=== PATIENT | male | born 1995 | race Caucasian/White ===

== ENCOUNTER 2016-12-23 15:40 | Emergency (ER) | payer OTHER ==
[2016-12-23 17:02] VITALS: BP 130/65
--- NOTE | 2016-12-23 18:08 | UC ---
Skin Complaint HPI - HPI Summary HPI Summary: skin rash that started in armpit and has progressed on arms and legs, over the past few months - History of Current Complaint Chief Complaint: UCRash Time Seen by Provider: 12/23/16 17:51 Stated Complaint: RASH Hx Obtained From: Patient Onset/Duration: Sudden Onset, Lasting Weeks Skin Exposure Onset/Duration: Weeks Ago Timing: Constant Onset Severity: Mild Current Severity: Mild Pain Scale Used: 0-10 Numeric Character: Pruritus, Redness, Raised Aggravating: Humidity Alleviating: Nothing Associated Signs & Symptoms: Positive: Negative - Allergy/Home Medications Allergies/Adverse Reactions: Allergies Allergy/AdvReac Type Severity Reaction Status Date / Time No Known Allergies Allergy Verified 12/23/16 17:02 Home Medications: Home Medications Cholecalciferol [Vitamin D] 1,000 unit PO 12/23/16 [History] Review of Systems Constitutional: Negative Skin: Rash Eyes: Negative ENT: Negative Respiratory: Negative Cardiovascular: Negative Gastrointestinal: Negative Genitourinary: Negative Motor: Negative Neurovascular: Negative Musculoskeletal: Negative Neurological: Negative Psychological: Negative All Other Systems Reviewed And Are Negative: Yes PMH/Surg Hx/FS Hx/Imm Hx Previously Healthy: Yes Endocrine History Of: Denies: Diabetes, Thyroid Disease Cardiovascular History Of: Denies: Cardiac Disorders, Hypertension Respiratory History Of: Denies: COPD, Asthma GI/ History Of: Denies: Ulcer - Surgical History Surgical History: None Surgery Procedure, Year, and Place: denies - Family History Known Family History: Negative: Cardiac Disease, Hypertension - Social History Alcohol Use: None Substance Use Type: None Smoking Status (MU): Never Smoked Tobacco - Immunization History Most Recent Influenza Vaccination: denies Physical Exam Triage Information Reviewed: Yes Appearance: Well-Appearing, Well-Nourished, Pain Distress Vital Signs: Initial Vital Signs Temp 98.1 F 12/23/16 16:57 Pulse 62 12/23/16 16:57 Resp 16 12/23/16 16:57 BP 130/65 12/23/16 16:57 Pulse Ox 100 12/23/16 16:57 Vital Signs Reviewed: Yes Eye Exam: Normal Eyes: Positive: Conjunctiva Clear ENT Exam: Normal ENT: Positive: Normal ENT inspection, Hearing grossly normal, Pharynx normal, TMs normal Dental Exam: Normal Neck exam: Normal Neck: Positive: Supple, Nontender, No Lymphadenopathy Respiratory Exam: Normal Respiratory: Positive: Chest non-tender, Lungs clear, Normal breath sounds Cardiovascular Exam: Normal Cardiovascular: Positive: RRR, No Murmur, Pulses Normal Abdominal Exam: Normal Abdomen Description: Positive: Nontender, No Organomegaly, Soft Bowel Sounds: Positive: Present Musculoskeletal Exam: Normal Musculoskeletal: Positive: Strength Intact, ROM Intact, No Edema Neurological Exam: Normal Neurological: Positive: Alert, Muscle Tone Normal Psychological Exam: Normal Skin: Positive: rashes - annular rash on both axilla an arms, right leg. Course/Dx - Course Course Of Treatment: hx obtained, exam performed, meds given for tinea - Differential Diagnoses - Skin Complaint Differential Diagnoses: Abscess, Cellulitis, Contact Dermatitis, Tinea - Diagnoses Provider Diagnoses: tinea corporis Discharge - Discharge Plan Condition: Stable Disposition: HOME Prescriptions: Clotrimazole 1% CREAM* [Clotrimazole 1%*] 1 applic TOPICAL BID #1 tube Patient Education Materials: Tinea Corporis (ED) Additional Instructions: use the medication for 3-4 weeks on all areas twice a day, keep skin dried off well. allow exposure to air frequently.
== END 2016-12-23 18:14 | disposition home or self-care (01) ==
LOC: UCEAST 15:40
DX: B35.4 Tinea corporis (principal)
CPT/HCPCS: 99202; G0463